=== PATIENT | female | born 1965 | race Caucasian/White ===

== ENCOUNTER 2019-09-08 16:13 | Observation (INO) | payer OTHER ==
[2019-09-08] MEDS ORDERED: PROVENTIL 2.5 MG/3 ML NEB IH ONE (16:40)
[2019-09-08] MEDS: PROVENTIL 2.5 MG/3 ML NEB IH SCH ×3 (16:41→22:55)
[2019-09-08 17:06] LABS: Hematocrit 39.5 % (35-47); Hemoglobin 13.1 gm/dl (12.0-16.0); Mean Cell Volume 91.4 fl (78-100); Mean Corpuscular Hemoglobin 30.3 pg (26-32); Mean Corpuscular Hgb Concent. 33.2 g/dl (32-36); Mean Platelet Volume 9.9 fl (7.5-11.0); Platelet Count 289 K/mm3 (150-450); Red Blood Count 4.32 M/mm3 (4.1-5.4); Red Cell Distribution Width 12.7 % (11.5-14.0); White Blood Count 7.6 K/mm3 (4.0-10.5)
[2019-09-08 17:20] LABS: ALBUMIN 4.4 g/dL (3.5-5.0); ALKALINE PHOSPHATASE 65 U/L (38-126); ANION GAP 10.7 MEQ/L (5-15); BLOOD UREA NITROGEN 19 mg/dL (7-17); CHLORIDE 105 mmol/L (98-107); Calcium 9.5 mg/dL (8.4-10.2); Carbon Dioxide 28 mmol/L (22-30); Creatinine 1 0.71 mg/dL (0.52-1.04); Glucose 110 mg/dL (74-106); Potassium 3.8 mmol/L (3.5-5.1); SGOT/AST 23 U/L (14-36); SGPT/ALT 14 U/L (0-35); SODIUM 140 mmol/L (137-145); Total Protein 8.2 g/dL (6.3-8.2)
[2019-09-08 17:46] LABS: INFLUENZA A NEGATIVE (NEGATIVE); INFLUENZA B NEGATIVE (NEGATIVE); RESPIRATORY SYNCTIAL VIRUS NEGATIVE (Negative)
[2019-09-08] MEDS: Robitussin AC Syrup Unit Dose Cup PO PRN ×2 (18:31→22:41)
[2019-09-08] MEDS: Sodium Chloride 0.9% 1000 ML 1,000 ML IV SCH (18:33)
[2019-09-08] MEDS: ROCEPHIN 1 Gm-D5w 50 ml Bag** 1 G/50 ML IVPB IV SCH (18:35)
[2019-09-08] MEDS: Zithromax 500 MG/ 250 ML NaCl Premix 500 MG/250 ML IVPB IV SCH (18:36)
[2019-09-08] MEDS ORDERED: DUONEB 0.5-3 MG/3 ml Neb IH SCH (19:00)
[2019-09-08] MEDS ORDERED: CEPACOL SORE THROAT LOZENGE PO PRN (21:04)
[2019-09-08] MEDS: TYLENOL 325 MG PO PRN (21:12)
[2019-09-09] MEDS: Sodium Chloride 0.9% 1000 ML 1,000 ML IV SCH ×3 (03:11→21:40)
[2019-09-09] MEDS: Robitussin AC Syrup Unit Dose Cup PO PRN (03:14)
[2019-09-09] MEDS: PROVENTIL 2.5 MG/3 ML NEB IH SCH ×5 (03:18→18:33)
--- NOTE | 2019-09-09 08:39 | XRAY ---
Indication: Severe cough 1 week. Comparison: June 05, 2017. PA/lateral chest remains hyperinflated and clear. Heart and mediastinal structures within normal limits. Bony thorax intact. No new/acute findings.
[2019-09-09] MEDS: Tussionex Pennkinetic Susp PO SCH ×2 (10:25→22:10)
[2019-09-09] MEDS: Zithromax 500 MG/ 250 ML NaCl Premix 500 MG/250 ML IVPB IV SCH (10:26)
[2019-09-09] MEDS: ROCEPHIN 1 Gm-D5w 50 ml Bag** 1 G/50 ML IVPB IV SCH (10:26)
[2019-09-09] MEDS: CEPACOL SORE THROAT LOZENGE PO PRN ×2 (10:27→18:23)
[2019-09-09] MEDS: TYLENOL 325 MG PO PRN ×2 (12:38→20:50)
--- NOTE | 2019-09-09 12:57 | PCM.HP.ADD ---
Addendum to History & Physical - History & Physical Addendum Addendum to History & Physical: This certifies that the History & Physical in the electronic chart reflects the current health status of the patient. If there are changes in the H&P these changes/exceptions are listed as follows.
--- NOTE | 2019-09-09 12:58 | PCM.NOTE ---
Date and Time: 09/09/19 [facility] Subjective Assessment: doing ok - Review of Systems Constitutional: No Fever, No Chills Eyes: No Symptoms Ears, Nose, & Throat: No Symptoms Respiratory: No Cough, No Short Of Breath Cardiac: No Chest Pain, No Edema, No Syncope Abdominal/Gastrointestinal: No Abdominal Pain, No Nausea, No Vomiting, No Diarrhea Genitourinary Symptoms: No Dysuria Musculoskeletal: No Back Pain, No Neck Pain Skin: No Rash Neurological: No Dizziness, No Focal Weakness, No Sensory Changes Psychological: No Symptoms Endocrine: No Symptoms Hematologic/Lymphatic: No Symptoms Immunological/Allergic: No Symptoms Objective Exam General Appearance: no apparent distress, alert Neurologic Exam: alert, oriented x 3, cooperative, normal mood/affect, nml cerebellar function, sensation nml, No motor deficits Skin Exam: normal color, warm, dry Eye Exam: PERRL, EOMI, eyes nml inspection Ears, Nose, Throat Exam: normal ENT inspection, pharynx normal, moist mucous membranes Neck Exam: normal inspection, non-tender, supple, full range of motion Respiratory Exam: diminished breath sounds, prolonged expirations, crackles/ rales, rhonchi, No respiratory distress Cardiovascular Exam: regular rate/rhythm, normal heart sounds Gastrointestinal/Abdomen Exam: soft, No tenderness, No mass Extremity Exam: normal inspection, normal range of motion Back Exam: normal inspection, normal range of motion, No CVA tenderness, No vertebral tenderness Pelvic Exam: deferred Rectal Exam: deferred OBJECTIVE DATA Vital Signs: Vital Signs - 24 hr Temp Pulse Resp BP Pulse Ox 09/09/19 12:00 98.3 F 85 18 110/64 98 09/09/19 11:04 72 16 98 09/09/19 07:46 97.2 F 65 18 95/62 98 09/09/19 07:00 76 16 98 09/09/19 04:00 97.9 F 75 17 99/55 95 09/09/19 03:29 102 H 18 98 09/09/19 00:00 97.6 F 76 16 100/59 96 09/08/19 23:01 82 18 97 09/08/19 20:00 97.7 F 97 H 18 118/72 97 09/08/19 19:58 97 H 20 96 09/08/19 16:48 98.6 F 88 18 136/76 97 09/08/19 16:26 98.6 F 88 18 136/76 97 09/08/19 16:25 98.6 F 88 20 136/76 97 Pain Assessment - Last Documented Pain Intensity 5 Pain Scale Used 0-10 Pain Scale Intake and Output: Intake & Output 09/07/19 09/08/19 09/09/19 09/10/19 11:59 11:59 11:59 11:59 Intake Total 2041 Output Total 1500 Balance 541 Weight 54.3 kg Lab Results: Lab Results-Last 24 Hours 09/08/19 09/08/19 09/08/19 Range/Units 17:00 17:00 17:07 WBC 7.6 (4.0-10.5) K/mm3 RBC 4.32 (4.1-5.4) M/mm3 Hgb 13.1 (12.0-16.0) gm/dl Hct 39.5 (35-47) % MCV 91.4 (78-100) fl MCH 30.3 (26-32) pg MCHC 33.2 (32-36) g/dl RDW 12.7 (11.5-14.0) % Plt Count 289 (150-450) K/mm3 MPV 9.9 (7.5-11.0) fl Sodium 140 (137-145) mmol/L Potassium 3.8 (3.5-5.1) mmol/L Chloride 105 (98-107) mmol/L Carbon Dioxide 28 (22-30) mmol/L Anion Gap 10.7 (5-15) MEQ/L BUN 19 H (7-17) mg/dL Creatinine 0.71 (0.52-1.04) mg/dL Estimated GFR > 60.0 ML/MIN Glucose 110 H (74-106) mg/dL Calcium 9.5 (8.4-10.2) mg/dL Total Bilirubin 0.40 (0.2-1.3) mg/dL AST 23 (14-36) U/L ALT 14 (0-35) U/L Alkaline Phosphatase 65 (38-126) U/L Serum Total Protein 8.2 (6.3-8.2) g/dL Albumin 4.4 (3.5-5.0) g/dL Influenza Type A Ag NEGATIVE (NEGATIVE) Influenza Type B Ag NEGATIVE (NEGATIVE) RSV (PCR) NEGATIVE (Negative) Radiology Exams: Radiology Procedures Category Date Time Status CHEST 2 VIEWS (PA AND LAT) Routine Exams 09/08/19 17:00 Completed Assessment/Plan (1) Bronchitis Current Visit: No Status: Resolved Code(s): J40 - BRONCHITIS, NOT SPECIFIED ACUTE OR CHRONIC (2) Pneumonia Current Visit: Yes Status: Acute Qualifiers: Pneumonia type: due to unspecified organism Laterality: unspecified laterality Lung location: unspecified part of lung Qualified Code(s): J18.9 - Pneumonia, unspecified organism Code(s): J18.9 - PNEUMONIA, UNSPECIFIED ORGANISM
[2019-09-09] MEDS ORDERED: Tussionex Pennkinetic Susp PO ONE (19:33)
[2019-09-10] MEDS: PROVENTIL 2.5 MG/3 ML NEB IH SCH ×3 (01:29→06:33)
[2019-09-10] MEDS: CEPACOL SORE THROAT LOZENGE PO PRN (04:05)
[2019-09-10] MEDS ORDERED: PROVENTIL 2.5 MG/3 ML NEB IH ONE (06:31)
[2019-09-10 06:38] VITALS: PULSE 68
[2019-09-10 07:38] VITALS: BP 114/71; O2SAT 97
[2019-09-10] MEDS: Sodium Chloride 0.9% 1000 ML 1,000 ML IV SCH (08:49)
[2019-09-10] MEDS: ROCEPHIN 1 Gm-D5w 50 ml Bag** 1 G/50 ML IVPB IV SCH (08:53)
[2019-09-10] MEDS: Tussionex Pennkinetic Susp PO SCH (08:53)
--- NOTE | 2019-09-10 09:12 | PCM.NOTE ---
Date and Time: 09/10/19910 Subjective Assessment: doing better - Review of Systems Constitutional: No Fever, No Chills Eyes: No Symptoms Ears, Nose, & Throat: No Symptoms Respiratory: Cough, No Short Of Breath Cardiac: No Chest Pain, No Edema, No Syncope Abdominal/Gastrointestinal: No Abdominal Pain, No Nausea, No Vomiting, No Diarrhea Genitourinary Symptoms: No Dysuria Musculoskeletal: No Back Pain, No Neck Pain Skin: No Rash Neurological: No Dizziness, No Focal Weakness, No Sensory Changes Psychological: No Symptoms Endocrine: No Symptoms Hematologic/Lymphatic: No Symptoms Immunological/Allergic: No Symptoms Objective Exam General Appearance: no apparent distress, alert Neurologic Exam: alert, oriented x 3, cooperative, normal mood/affect, nml cerebellar function, sensation nml, No motor deficits Skin Exam: normal color, warm, dry Eye Exam: PERRL, EOMI, eyes nml inspection Ears, Nose, Throat Exam: normal ENT inspection, pharynx normal, moist mucous membranes Neck Exam: normal inspection, non-tender, supple, full range of motion Respiratory Exam: normal breath sounds, lungs clear, No respiratory distress Cardiovascular Exam: regular rate/rhythm, normal heart sounds Gastrointestinal/Abdomen Exam: soft, No tenderness, No mass Extremity Exam: normal inspection, normal range of motion Back Exam: normal inspection, normal range of motion, No CVA tenderness, No vertebral tenderness Pelvic Exam: deferred Rectal Exam: deferred OBJECTIVE DATA Vital Signs: Vital Signs - 24 hr Temp Pulse Resp BP Pulse Ox 09/10/19 07:38 98.7 F 68 18 114/71 97 09/10/19 06:37 68 18 98 09/10/19 04:00 97.7 F 82 22 124/72 97 09/10/19 01:29 79 18 98 09/10/19 00:00 97.4 F 75 18 98/59 94 L 09/09/19 20:00 98.1 F 87 20 136/96 98 09/09/19 18:37 93 H 18 97 09/09/19 16:00 98.3 F 88 16 110/64 09/09/19 14:38 88 16 09/09/19 12:00 98.3 F 85 18 110/64 98 09/09/19 11:04 72 16 98 Pain Assessment - Last Documented Pain Intensity 0 Pain Scale Used 0-10 Pain Scale Intake and Output: Intake & Output 09/07/19 09/08/19 09/09/19 09/10/19 11:59 11:59 11:59 11:59 Intake Total 2041 3993 Output Total 1500 Balance 541 3993 Weight 54.3 kg Radiology Exams: Radiology Procedures Category Date Time Status CHEST 2 VIEWS (PA AND LAT) Routine Exams 09/08/19 17:00 Completed Assessment/Plan (1) Pneumonia Current Visit: Yes Status: Acute Qualifiers: Pneumonia type: due to unspecified organism Laterality: unspecified laterality Lung location: unspecified part of lung Qualified Code(s): J18.9 - Pneumonia, unspecified organism Code(s): J18.9 - PNEUMONIA, UNSPECIFIED ORGANISM (2) Bronchitis Current Visit: Yes Status: Acute Code(s): J40 - BRONCHITIS, NOT SPECIFIED ACUTE OR CHRONIC
--- NOTE | 2019-09-10 09:22 | PCM.DS ---
Discharge Summary Date of Admission: 09/08/19 16:19 Admitting Physician: MATEO DOWD Primary Care Provider: MATEO DOWD Allergies Allergies No Known Drug Allergies Allergy (Verified 07/31/16 17:30) Hospital Summary - Hospital Course Hospital Course: Chief Complaint Diagnosis pne Allergies Allergy/AdvReac Type Severity Reaction Status Date / Time No Known Drug Allergies Allergy Verified 07/31/16 17:30 Vital Signs (Last 24 hours) Temp Pulse Resp BP Pulse Ox 09/10/19 07:38 98.7 F 68 18 114/71 97 09/10/19 06:37 68 18 98 09/10/19 04:00 97.7 F 82 22 124/72 97 09/10/19 01:29 79 18 98 09/10/19 00:00 97.4 F 75 18 98/59 94 L 09/09/19 20:00 98.1 F 87 20 136/96 98 09/09/19 18:37 93 H 18 97 09/09/19 16:00 98.3 F 88 16 110/64 09/09/19 14:38 88 16 09/09/19 12:00 98.3 F 85 18 110/64 98 09/09/19 11:04 72 16 98 Home Medications Medication Instructions Recorded Confirmed Last Taken Type No Reportable Medications [No 09/08/19 09/08/19 Unknown History Reported Medications] Current Medications Generic Name Dose Route Start Last Admin Trade Name Freq PRN Reason Stop Dose Admin Acetaminophen 650 mg 09/08/19 21:04 09/09/19 20:50 Tylenol 325 Mg PO 10/08/19 21:03 650 mg Q6H PRN PRN Administration PAIN AND/OR FEVER Albuterol Sulfate 2.5 mg 09/10/19 01:31 09/10/19 06:33 Proventil 2.5 Mg/3 Ml Neb IH 10/10/19 00:59 2.5 mg Q6HRT KENIA Administration Chlorphenir/Hydrocodone Polistirex 5 ml 09/09/19 10:00 09/10/19 08:53 Tussionex Pennkinetic Susp PO 09/14/19 09:59 5 ml Q12HT KENIA Administration Sodium Chloride 1,000 mls @ 100 mls/hr 09/08/19 17:15 09/10/19 08:49 Sodium Chloride 0.9% 1000 Ml IV 10/08/19 17:14 100 mls/hr .Q10H KENIA Administration Ceftriaxone Sodium/Dextrose 1 g in 50 mls @ 100 mls/hr 09/08/19 17:30 08:53 Rocephin 1 Gm-D5w 50 Ml Bag IV 10/08/19 17:29 100 mls/hr DAILY KENIA Administration Azithromycin 500 mg in 250 mls @ 250 mls/hr 09/08/19 17:30 09/09/19 10:26 Zithromax 500 Mg/ 250 Ml Nacl Premix IV 10/08/19 17:29 250 mls/hr DAILY KENIA Administration Throat Lozenges 15 mg 09/09/19 07:30 09/10/19 04:05 Cepacol Sore Throat Lozenge PO 10/08/19 21:03 15 mg Q2H/PRN PRN Administration sore throat Discontinued Medications Generic Name Dose Route Start Last Admin Trade Name Freq PRN Reason Stop Dose Admin Albuterol Sulfate 2.5 mg 09/08/19 19:00 09/10/19 01:32 Proventil 2.5 Mg/3 Ml Neb IH 10/08/19 18:59 Not Given Q4HRT KENIA Albuterol Sulfate Confirm 09/08/19 16:40 Proventil 2.5 Mg/3 Ml Neb Administered 09/08/19 16:41 Dose 2.5 mg IH .STK-MED ONE Albuterol Sulfate Confirm 09/10/19 06:31 Proventil 2.5 Mg/3 Ml Neb Administered 09/10/19 06:32 Dose 2.5 mg IH .STK-MED ONE Albuterol/Ipratropium 3 ml 09/08/19 19:00 Duoneb 0.5-3 Mg/3 Ml Neb IH 10/08/19 18:59 Q6HRT KENIA Chlorphenir/Hydrocodone Polistirex 5 ml 09/09/19 19:33 09/09/19 19:36 Tussionex Pennkinetic Susp PO 09/09/19 19:34 5 ml STAT ONE Administration Guaifenesin/Codeine Phosphate 5 ml 09/08/19 17:14 09/09/19 03:14 Robitussin Ac Syrup Unit Dose Cup PO 10/08/19 17:13 5 ml Q4H PRN PRN Administration COUGH Throat Lozenges 15 mg 09/08/19 21:04 09/08/19 21:13 Cepacol Sore Throat Lozenge PO 10/08/19 21:14 15 mg Q2H PRN Administration sore throat Intake & Output (Last 24 hours) 09/07/19 09/08/19 09/09/19 09/10/19 11:59 11:59 11:59 11:59 Intake Total 2041 3993 Output Total 1500 Balance 541 3993 Weight 54.3 kg Orders (Last 24 hours) Category Date Time Status Albuterol 2.5 mg/3 ml Neb [Proventil 2.5 mg/3 ml Neb Med 09/10/19 06:31 Discontinued ] 2.5 mg IH .STK-MED ONE Albuterol 2.5 mg/3 ml Neb [Proventil 2.5 mg/3 ml Neb Med 09/10/19 01:31 Active ] 2.5 mg IH Q6HRT Hydrocod Psx/Chlor-Darell [Tussionex Pennkinetic Susp* Med 09/09/19 10:00 Active ] 5 ml PO Q12HT Hydrocod Psx/Chlor-Darell [Tussionex Pennkinetic Susp* Med 09/09/19 19:33 Discontinued ] 5 ml PO STAT ONE Patient Care Notes (Last 24 hours) 09/09/19 19:44 Nursing Note by Kera Dinh Dr. returned call and gave new order for extra dose of Tussionex. Administered at this time. Initialized on 09/09/19 19:44 - END OF NOTE 09/09/19 19:25 Nursing Note by Kera Dinh Patient c/o coughing and states that the tussionex is not helping as it should. This sba underwriter called Dr. Dowd to report. No answer and mailbox is full. Will attempt to call again. Initialized on 09/09/19 19:25 - END OF NOTE - Vitals & Intake/Output Vital Signs: Vital Signs Temperature 98.7 F 09/10/19 07:38 Pulse Rate 68 09/10/19 07:38 Respiratory Rate 18 09/10/19 07:38 Blood Pressure 114/71 09/10/19 07:38 O2 Sat by Pulse Oximetry 97 09/10/19 07:38 Intake & Output: Intake & Output 09/07/19 09/08/19 09/09/19 09/10/19 11:59 11:59 11:59 11:59 Intake Total 2041 3993 Output Total 1500 Balance 541 3993 Weight 54.3 kg - Lab Result Diagrams: 09/08/19 17:00 09/08/19 17:00 - Radiology Exams Ordered Rad Exams-Entire Visit: Radiology Procedures Category Date Time Status CHEST 2 VIEWS (PA AND LAT) Routine Exams 09/08/19 17:00 Completed - Procedures and Test Procedures and Tests throughout Hospitalization: Therapy Orders & Screens 09/09/19 07:00 Peak Expiratory Flow Rate DAILY Comment: Reason For Exam: Respiratory Therapy Assessment DAILY Comment: Discharge Exam General Appearance: no apparent distress, alert Neurologic Exam: alert, oriented x 3, cooperative, normal mood/affect, nml cerebellar function, sensation nml, No motor deficits Eye Exam: PERRL, EOMI, eyes nml inspection Ears, Nose, Throat Exam: normal ENT inspection, pharynx normal, moist mucous membranes Neck Exam: normal inspection, non-tender, supple, full range of motion Respiratory Exam: normal breath sounds, lungs clear, No respiratory distress Cardiovascular Exam: regular rate/rhythm, normal heart sounds Gastrointestinal/Abdomen Exam: soft, No tenderness, No mass Pelvic Exam: deferred Rectal Exam: deferred Back Exam: normal inspection, normal range of motion, No CVA tenderness, No vertebral tenderness Extremity Exam: normal inspection, normal range of motion Skin Exam: normal color, warm, dry Final Diagnosis/Problem List - Final Discharge Diagnosis/Problem (1) Pneumonia Current Visit: Yes Status: Acute Assessment & Plan: viral etiology, will discharge home today with zpak, medrol dosepak, tussionex Code(s): J18.9 - PNEUMONIA, UNSPECIFIED ORGANISM (2) Bronchitis Current Visit: Yes Status: Acute Code(s): J40 - BRONCHITIS, NOT SPECIFIED ACUTE OR CHRONIC - Discharge Discharge Date: 09/10/19 Disposition: Home, Self-Care Condition: Stable Prescriptions: New Methylprednisolone Packet [Medrol Dosepack] 4 mg PO UD #30 packet Hydrocod Psx/Chlor-Darell [Tussionex Pennkinetic Susp] 5 ml PO Q12HT 10 Days #100 oralsyring MDD max 20 ml a day Azithromycin [Zithromax] 250 mg PO UD #6 tablet Follow up with: MATEO DOWD MD [Primary Care Provider] - 1 Week Forms: Work/School Release Form
== END 2019-09-10 10:17 | disposition home or self-care (01) ==
LOC: MED SURG 16:19
PROVIDERS: ADMIT General Practice; ATTEND General Practice
DX: J18.9 Pneumonia, unspecified organism (principal); J40 Bronchitis, not specified as acute or chronic; Z79.899 Other long term (current) drug therapy
CPT/HCPCS: 36415; 71046; 80053; 85027; 87631; 94150; 94640; 94760; G0378; J0456; J0696; J7609; A9270-GY

== ENCOUNTER 2022-07-25 15:38 | Day surgery (SDC) | payer OTHER ==
[~2022-07-25 15:38] MED LIST: Pre-Attached Lta Kit TP ONE
[2022-07-25] MEDS ORDERED: LIDOCAINE HCL 1% 50 MG/5 ML VL PF IJ ONE (15:39)
[2022-07-25] MEDS ORDERED: BUPIVACAINE 0.5% VIAL IJ ONE (15:39)
[2022-07-25] MEDS ORDERED: Depo-Medrol 40 MG/ML IM ONE (15:39)
--- NOTE | 2022-07-25 19:52 | XRAY ---
Indication: Left SI joint injection. Intraoperative fluoroscopy provided for 9 seconds. 3 digital spot images submitted for interpretation demonstrates posterior needle tip projecting over the left SI joint. Correlate with intraoperative findings/report.
--- NOTE | 2022-07-26 09:05 | XRAY ---
9 seconds fluoroscopy time in surgery for injection of the left SI joint.
== END 2022-07-25 18:25 | disposition home or self-care (01) ==
LOC: SDC-PAIN 15:38
PROVIDERS: ATTEND Psychiatry & Neurology Pain Medicine
DX: M46.1 Sacroiliitis, not elsewhere classified (principal); Z79.899 Other long term (current) drug therapy
CPT/HCPCS: 27096; 72170; 77002; J1030; J2001; G0260

== ENCOUNTER 2022-09-19 08:23 | Day surgery (SDC) | payer OTHER ==
[2022-09-19] MEDS ORDERED: BUPIVACAINE 0.5% VIAL IJ ONE (08:24)
[2022-09-19] MEDS ORDERED: Depo-Medrol 40 MG/ML IM ONE (08:24)
[2022-09-19] MEDS ORDERED: DIPRIVAN 200 MG/20 ML IV ONE (10:00)
--- NOTE | 2022-09-19 11:41 | XRAY ---
Indication: Left SI joint injection. Intraoperative fluoroscopy provided for 10 seconds. 3 digital spot image submitted for interpretation demonstrates posterior needle tip projecting over the left SI joint. Correlate with intraoperative findings/report.
--- NOTE | 2022-09-19 12:52 | XRAY ---
10 seconds fluoroscopy time in surgery for injection of the left SI joint.
[2022-09-19] MEDS ORDERED: Lactated Ringers 1,000 ML IV ONE (13:15)
== END 2022-09-19 10:35 | disposition home or self-care (01) ==
LOC: SDC-PAIN 08:23
PROVIDERS: ATTEND Psychiatry & Neurology Pain Medicine
DX: M46.1 Sacroiliitis, not elsewhere classified (principal); Z79.899 Other long term (current) drug therapy
CPT/HCPCS: 27096; 72170; 77002; J1030; J2704; G0260

== ENCOUNTER → 2024-05-13 | Emergency (ER) | payer OTHER ==
--- NOTE | 2024-05-13 14:28 | ERPHSYRPT ---
- History of Present Illness Time Seen by Provider: 05/13/24 14:27 Historian: patient, family Exam Limitations: no limitations Allergies/Adverse Reactions: No Known Drug Allergies Allergy (Verified 07/31/16 17:30) - Past Medical History Pertinent Past Medical History: Yes Neurological History: Stroke ENT History: Other Cardiac History: High Cholesterol Respiratory History: No Pertinent History Endocrine Medical History: Other Musculoskeletal History: No Pertinent History GI Medical History: GERD History: No Pertinent History Psycho-Social History: No Pertinent History Female Reproductive Disorders: No Pertinent History Other Medical History: thyroid nodules - Past Surgical History Past Surgical History: Yes Neuro Surgical History: No Pertinent History Cardiac: No Pertinent History Respiratory: No Pertinent History Gastrointestinal: Cholecystectomy Genitourinary: No Pertinent History Musculoskeletal: Orthopedic Surgery Female Surgical History: Hysterectomy, Section Other Surgical History: Esophageal dilatation - Social History Smoking Status: Never smoker Exposure to second hand smoke: No Drug Use: none - Departure Referrals: MATEO DOWD MD [Primary Care Provider] - Follow up/PCP as directed
== END | disposition left against medical advice (07) ==
LOC: ED 14:26
DX: Z53.21 Procedure and treatment not carried out due to patient leaving prior to being seen by health care provider (principal)